=== PATIENT | male | born 1955 | race Caucasian/White ===

== ENCOUNTER 2016-04-03 00:02 | Emergency (ER) | payer OTHER ==
[~2016-04-03] VITALS: Ht 175.3 cm; Wt 154.0 kg
[~2016-04-03 00:02] MED LIST: AMLO5TAB96 PO; APIX2.5T PO; ECOT81TA2 PO; EZET10 PO; GLIM4TAB PO; GLUCTAB PO; HYDR50TA5 PO; LORTA5 PO; LOSA100T PO; METO100T PO; NITR0.4S SL; RANI150 PO; REST15CA PO; TIZA4 PO
[2016-04-03 00:10] VITALS: BP 151/74; PULSE 62; RESP 18; TEMP 98.1; O2SAT 97
[2016-04-03] MEDS ORDERED: VITA1000 PO (00:40)
[2016-04-03] MEDS ORDERED: TIZA4CAP3 PO (00:40)
[2016-04-03] MEDS ORDERED: ZOLP10TA3 PO (00:40)
[2016-04-03] MEDS ORDERED: ATOR10TA15 PO (00:42)
[2016-04-03] MEDS ORDERED: LOSA100T PO (00:42)
[2016-04-03] MEDS ORDERED: HYDR25TA5 PO (00:42)
[2016-04-03] MEDS ORDERED: GLIM4TAB PO (00:42)
[2016-04-03] MEDS ORDERED: HYDR-3533 PO (00:46)
[2016-04-03] MEDS ORDERED: ASPI-119 (00:49)
[2016-04-03] MEDS ORDERED: APIX5TAB PO (00:49)
[2016-04-03] MEDS ORDERED: METO100T PO (00:49)
[2016-04-03] MEDS ORDERED: ZETI10TA5 PO (00:49)
[2016-04-03] MEDS ORDERED: METF1000 PO (00:49)
[2016-04-03] MEDS ORDERED: AMLO5TAB2 PO (00:49)
[2016-04-03] MEDS ORDERED: BUPR150CR PO (00:50)
[2016-04-03] MEDS ORDERED: TETANUS/DIPHTHERIA TOXOID ADULT 0.5 ML VIAL IM ONE (01:30)
--- NOTE | 2016-04-03 01:36 | PD ---
HPI Chief Complaint: Laceration/Skin Injury Time Seen by Provider: 01:24 Travel History International Travel<30 days: No Contact w/Intl Traveler<30days: No Traveled to known affect area: No History of Present Illness HPI The patient is a 60-year-old [id number] male that lacerated the dorsum of his right thumb on a pistol at approximately 7 PM yesterday. His last tetanus shot was apparently over 5 years. He is on L Mikayla for atrial fibrillation and it would not stop bleeding. He can extend the IP joint of the right thumb without a problem. He has no numbness or weakness on the thumb. He denies any other injury. PFSH Past Medical History Autoimmune Disease: No Blood Disorders: No Cancer: No Cardiovascular Problems: Yes High Cholesterol: Yes Chest Pain: Yes Diabetes: Yes Patient Takes Glucophage: Yes (0904/02/16) Diminished Hearing: No Gastrointestinal Disorders: Yes (IBS) Genitourinary: No Hypertension: Yes Immune Disorder: No Musculoskeletal: Yes Neurologic: No Psychiatric: No Reproductive: No Tetanus Vaccination: < 5 Years PNEUMOCCOCAL Vaccine (Year): 1 Past Surgical History Abdominal Surgery: Yes (lap band) Appendectomy: Yes (AGE 9) Cardiac Surgery: Yes (STENTS) Coronary Stent: Yes (rca) Ear Surgery: No Endocrine Surgery: No Eye Surgery: No Gynecologic Surgery: No Oral Surgery: No Thoracic Surgery: No Tonsillectomy: Yes (CHILDHOOD) Other Surgery: Yes (L4-L5 LUMBAR LAMINECTOMY 1997) Social History Alcohol Use: Yes (OCCAS) Tobacco Use: No Substance Use: No Allergies-Medications (Allergen,Severity, Reaction): Coded Allergies: JORGITO Inhibitors (Verified Allergy, Severe, Cough, 04/03/16) Aldactone (Verified Allergy, Severe, GYNECOMASTIA, 04/03/16) Bee Sting (Verified Allergy, Severe, 04/03/16) Warfarin (Verified Allergy, Severe, Rash, 04/03/16) Reported Meds & Prescriptions Reported Meds & Active Scripts Active Reported Wellbutrin SR 12 HR (Bupropion HCl) 150 Mg Tab 150 Mg PO Q12HR Amlodipine (Amlodipine Besylate) 5 Mg Tab 5 Mg PO BID Metoprolol Tartrate 100 Mg Tab 100 Mg PO BID Hussein Low Dose (Aspirin) 81 Mg Tabdr Eliquis (Apixaban) 5 Mg Tab 5 Mg PO BID Metformin (Metformin HCl) 1,000 Mg Tab 1,000 Mg PO BIDPC With meals Zetia (Ezetimibe) 10 Mg Tab 10 Mg PO DAILY Lortab (Hydrocodone-Acetaminophen) 5-325 Mg Tab 1 Tab PO Q12HR PRN Hydrochlorothiazide 25 Mg Tab 25 Mg PO DAILY Losartan (Losartan Potassium) 100 Mg Tab 100 Mg PO DAILY Atorvastatin (Atorvastatin Calcium) 10 Mg Tab 10 Mg PO HS Glimepiride 4 Mg Tab 4 Mg PO DAILY Take with breakfast or first main meal Zolpidem (Zolpidem Tartrate) 10 Mg Tab 10 Mg PO HS PRN Tizanidine (Tizanidine HCl) 4 Mg Cap 8 Mg PO HS PRN Vitamin D-1000 (Cholecalciferol) 1,000 Unit Tab 1,000 Units PO DAILY Review of Systems Except as stated in HPI: all other systems reviewed are Neg Physical Exam Narrative GENERAL: Well-nourished, well-developed patient in minimal apparent distress with his laceration of his right thumb. His vital signs show blood pressure 151 /74 but are otherwise normal. SKIN: Warm and dry. There is a 1-1/2 cm laceration over the dorsum of the right thumb which is continually bleeding. No arterial bleeding is noted. HEAD: Normocephalic. EYES: No scleral icterus. No injection or drainage. NECK: Supple, trachea midline. No JVD or lymphadenopathy. CARDIOVASCULAR: Regular rate and rhythm without murmurs, gallops, or rubs. RESPIRATORY: Breath sounds equal bilaterally. No accessory muscle use. GASTROINTESTINAL: Abdomen soft, non-tender, nondistended. MUSCULOSKELETAL: No cyanosis, or edema. Good capillary refill and pinprick is present distally on the right thumb. He has good dorsiflexion of the right thumb at the IP joint.. BACK: Nontender without obvious deformity. No CVA tenderness. Data Data Last Documented VS Vital Signs Date Time Temp Pulse Resp B/P Pulse Ox O2 Delivery O2 Flow Rate FiO2 04/03/16 00:30 62 18 04/03/16 00:10 98.1 151/74 97 Orders Wound Care (04/03/16 01:24) Tetanus/Diphtheria Tox Adult (Tetanus/Di (04/03/16 01:30) MDM Medical Decision Making Medical Screen Exam Complete: Yes Emergency Medical Condition: Yes Medical Record Reviewed: Yes Differential Diagnosis Coagulopathy, laceration right thumb, laceration tendon, laceration nerve Narrative Course The patient has a laceration of the right thumb with a coagulopathy from Eliquis. There are no tendons or nerves involved in the wound but he does continually bleed. For this reason horizontal mattress sutures were put in for good compression. Procedures Procedure Narrative The thumb was prepped with Betadine. Under sterile technique, the laceration was infiltrated with lidocaine with epinephrine. The wound was explored and no tendons or nerves were noted in the laceration. The wound was copiously irrigated with saline. 2 horizontal mattress sutures were put in in this created good eversion of the skin and good compression of the small vessels. The patient tolerated the procedure well. Diagnosis Primary Impression: Laceration of thumb, right Additional Impression: Coagulopathy Additional Instructions: As we discussed, keep the wound clean and dry and keep a line of antibiotic ointment over the wound. If this wound gets infected, return immediately to emergency department. Remove the stitches in 10 days. The laceration will not be a full-strength for a month so do not flex the thumb fully as the laceration could open up. Med/Other Pt SpecificInfo: No Change to Meds Disposition: 01 DISCHARGE HOME Condition: Stable Miguel Tripp MD Apr 03, 2016 01:36
== END 2016-04-03 01:58 | disposition home or self-care (01) ==
LOC: PHED 00:02
DX: S61.011A Laceration without foreign body of right thumb without damage to nail, initial encounter (principal); D68.9 Coagulation defect, unspecified; I48.91 Unspecified atrial fibrillation; E78.00 Pure hypercholesterolemia, unspecified; E11.9 Type 2 diabetes mellitus without complications; I10 Essential (primary) hypertension; Z23 Encounter for immunization; W22.8XXA Striking against or struck by other objects, initial encounter
CPT/HCPCS: 12001; 90471; 90714

== ENCOUNTER → 2016-09-01 | Outpatient (CLI) | payer OTHER ==
[~2016-09-01] MED LIST changes: +AMLO5TAB2 PO; -AMLO5TAB96 PO; -APIX2.5T PO; +APIX5TAB PO; +ASPI-119; +ATOR10TA15 PO; +BUPR150CR PO; -ECOT81TA2 PO; -EZET10 PO; -GLUCTAB PO; +HYDR-3533 PO; +HYDR25TA5 PO; -HYDR50TA5 PO; -LORTA5 PO; +METF1000 PO; -NITR0.4S SL; -RANI150 PO; -REST15CA PO; -TIZA4 PO; +TIZA4CAP3 PO; +VITA1000 PO; +ZETI10TA5 PO; +ZOLP10TA3 PO
[2016-09-01 16:06] LABS: AUTOMATED NEUTROPHIL # 6.3 TH/MM3 (1.8-7.7); BASOPHIL % 0.5 % (0.0-2.0); EOSINOPHIL # 0.4 TH/MM3 (0-0.4); EOSINOPHIL % 4.5 % (0.0-4.0); HEMATOCRIT 41.5 % (39.0-51.0); HEMO FLAGS DIFF FINAL; LYMPH % 20.5 % (9.0-44.0); LYMPHOCYTE # 1.9 TH/MM3 (1.0-4.8); MEAN CELL VOLUME 81.2 FL (80.0-100.0); MEAN CORPUSCULAR HEMOGLOBIN 26.9 PG (27.0-34.0); MEAN CORPUSCULAR HGB CONC 33.1 % (32.0-36.0); MONO % 6.7 % (0.0-8.0); NEUT % 67.8 % (16.0-70.0); PLATELET COUNT 364 TH/MM3 (150-450); RED BLOOD COUNT 5.12 MIL/MM3 (4.50-5.90); RED CELL DISTRIBUTION WIDTH 14.4 % (11.6-17.2); WHITE BLOOD COUNT 9.3 TH/MM3 (4.0-11.0)
[2016-09-01 16:26] LABS: MICRO ALBUMIN RANDOM URINE RAW 27.7 MG/L (0.0-30.0)
[2016-09-01 16:32] LABS: ANION GAP 8 MEQ/L (5-15); AST (GOT) 22 U/L (15-37); BICARBONATE 29.3 MEQ/L (21.0-32.0); BLOOD UREA NITROGEN 11 MG/DL (7-18); CHLORIDE 101 MEQ/L (98-107); GLOMERULAR FILTRATION RATE 72 ML/MIN (>89); POTASSIUM 3.8 MEQ/L (3.5-5.1); SODIUM (NA) 138 MEQ/L (136-145)
[2016-09-01 16:46] LABS: ALKALINE PHOSPHATASE 59 U/L (45-117); ALT (GPT) 35 U/L (12-78); GLUCOSE,FASTING 123 MG/DL (74-99); HDL CHOLESTEROL 51.2 MG/DL (40.0-60.0); INDIRECT BILIRUBIN 0.5 MG/DL (0.0-0.8); LDL CHOLESTEROL 72 MG/DL (0-99); TOTAL BILIRUBIN ADULT 0.6 MG/DL (0.2-1.0)
[2016-09-01 21:30] LABS: HEMOGLOBIN A1a 1.6 %; HEMOGLOBIN A1b 2.1 %; HEMOGLOBIN Ao 83.6 %; HEMOGLOBIN P3 3.9 %
== END ==
LOC: PLAB 12:37
PROVIDERS: ATTEND Family Medicine
DX: E78.5 Hyperlipidemia, unspecified (principal); E11.9 Type 2 diabetes mellitus without complications; E55.9 Vitamin D deficiency, unspecified
CPT/HCPCS: 80048; 80061; 80076; 82043; 82306; 83036; 84153; 84443; 85025

== ENCOUNTER 2016-11-05 17:14 | Emergency (ER) | payer OTHER ==
[~2016-11-05] VITALS: Ht 175.3 cm; Wt 156.3 kg
[2016-11-05 17:17] VITALS: BP 169/70; PULSE 72; RESP 16
--- NOTE | 2016-11-05 17:35 | PD ---
HPI Chief Complaint: Skin Problem Time Seen by Provider: 17:31 Travel History International Travel<30 days: No Contact w/Intl Traveler<30days: No Traveled to known affect area: No History of Present Illness HPI This 60-year-old male is complaining of pain in his left leg. He says about 10 days ago he was laying with his dog and kicked the coffee table quite hard. Been having pain in the leg since then. He has been able to walk on it. It has become swollen and tender. There is a small area of skin breakdown. There has not been any fever or chills. He has a history of atrial fibrillation. He was on Coumadin at one time but had an allergy to it and is currently on Eliquis. He has had an ablation and apparently consideration is being given to taking him off his Eliquis. The pain was worse the last couple of days. PFSH Past Medical History Hx Anticoagulant Therapy: Yes (elaquis) Autoimmune Disease: No Blood Disorders: No Cancer: No Cardiovascular Problems: Yes High Cholesterol: Yes Chest Pain: Yes Diabetes: Yes Diminished Hearing: No Gastrointestinal Disorders: Yes (IBS) Genitourinary: No Hypertension: Yes Immune Disorder: No Musculoskeletal: Yes Neurologic: No Psychiatric: No Reproductive: No PNEUMOCCOCAL Vaccine (Year): 1 Past Surgical History Abdominal Surgery: Yes (lap band) Appendectomy: Yes (AGE 9) Cardiac Surgery: Yes (STENTS) Coronary Stent: Yes (rca) Ear Surgery: No Endocrine Surgery: No Eye Surgery: No Gynecologic Surgery: No Oral Surgery: No Thoracic Surgery: No Tonsillectomy: Yes (CHILDHOOD) Other Surgery: Yes (L4-L5 LUMBAR LAMINECTOMY 1997) Social History Alcohol Use: Yes (OCCAS) Tobacco Use: No Substance Use: No Allergies-Medications (Allergen,Severity, Reaction): Coded Allergies: bee venom protein (honey bee) (Unverified Allergy, Severe, 11/05/16) benazepril (Unverified Allergy, Severe, Cough, 11/05/16) captopril (Unverified Allergy, Severe, Cough, 11/05/16) enalaprilat (Unverified Allergy, Severe, Cough, 11/05/16) fosinopril (Unverified Allergy, Severe, Cough, 11/05/16) lisinopril (Unverified Allergy, Severe, Cough, 11/05/16) quinapril (Unverified Allergy, Severe, Cough, 11/05/16) spironolactone (Unverified Allergy, Severe, GYNECOMASTIA, 11/05/16) warfarin (Unverified Allergy, Severe, Rash, 11/05/16) Reported Meds & Prescriptions Reported Meds & Active Scripts Active Reported Amlodipine (Amlodipine Besylate) 5 Mg Tab 5 Mg PO BID Metoprolol Tartrate 100 Mg Tab 100 Mg PO BID Hussein Low Dose (Aspirin) 81 Mg Tabdr Eliquis (Apixaban) 5 Mg Tab 5 Mg PO BID Metformin (Metformin HCl) 1,000 Mg Tab 1,000 Mg PO BIDPC With meals Zetia (Ezetimibe) 10 Mg Tab 10 Mg PO DAILY Hydrochlorothiazide 25 Mg Tab 25 Mg PO DAILY Losartan (Losartan Potassium) 100 Mg Tab 100 Mg PO DAILY Atorvastatin (Atorvastatin Calcium) 10 Mg Tab 10 Mg PO HS Glimepiride 4 Mg Tab 4 Mg PO DAILY Take with breakfast or first main meal Vitamin D-1000 (Cholecalciferol) 1,000 Unit Tab 1,000 Units PO DAILY Review of Systems General / Constitutional: No: Fever, Chills Eyes: No: Diploplia, Blurred Vision HENT: No: Headaches Cardiovascular: No: Chest Pain or Discomfort Respiratory: No: Cough Gastrointestinal: No: Nausea, Vomiting Musculoskeletal: Positive: Pain, No: Myalgias Skin: No Rash Hematologic/Lymphatic: Positive: Easy Bruising Physical Exam Narrative GENERAL: Well-developed male SKIN: Focused skin assessment warm/dry. HEAD: Atraumatic. Normocephalic. EYES: Pupils equal and round. No scleral icterus. No injection or drainage. ENT: No nasal bleeding or discharge. Mucous membranes pink and moist. NECK: Trachea midline. No JVD. GASTROINTESTINAL: Abdomen soft, non-tender, nondistended. Hepatic and splenic margins not palpable. MUSCULOSKELETAL: Examination of the left leg shows some ecchymosis overlying the distal portion of the tibia area. there is localized tenderness. Pulses and sensation are intact. He is able to flex and extend his foot. There is a small area of skin breakdown that is leaking some clear fluid NEUROLOGICAL: Awake and alert. No obvious cranial nerve deficits. Motor grossly within normal limits. Normal speech. PSYCHIATRIC: Appropriate mood and affect; insight and judgment normal. Data Data Last Documented VS Vital Signs Date Time Temp Pulse Resp B/P (MAP) Pulse Ox O2 Delivery O2 Flow Rate FiO2 11/05/16 17:17 72 16 169/70 (103) Orders Orders Tibia/Fibula (Ap/Lat) (11/05/16 17:31) MDM Medical Decision Making Medical Screen Exam Complete: Yes Emergency Medical Condition: Yes Medical Record Reviewed: Yes Differential Diagnosis Differential includes contusion, ecchymosis secondary to Eliquis, fracture Narrative Course History of the left tib-fib is negative for fracture. Impression is contusion of the left santos. Xarelto. He is to keep the leg elevated avoid weightbearing Diagnosis Primary Impression: Contusion of left leg Qualified Codes: S80.12XA - Contusion of left lower leg, initial encounter Additional Instructions: Keep leg elevated Disposition: 01 DISCHARGE HOME Condition: Stable Goyo Nowak MD Nov 05, 2016 17:35
[2016-11-05 18:29] VITALS: BP 175/82; PULSE 70; RESP 16; O2SAT 96
--- NOTE | 2016-11-05 19:19 | RADRPT ---
EXAM DATE/TIME: 11/05/2016 17:39 [facility] COMPARISON: No previous studies available for comparison. INDICATIONS : Left distal tibia/fibula pain with bruising post hitting leg on corner of table. MEDICAL HISTORY : Torn ligaments to left ankle SURGICAL HISTORY : Left ankle ligament reconstruction ENCOUNTER: Initial ACUITY: 1 week PAIN SCORE: 7/10 LOCATION: Left distal tibia/fibula FINDINGS: An acute fracture is not seen. There does appear to be some linear density seen at the posterior proximal diaphyseal region of the proximal tibia likely related to hypertrophic change. T here is some minimal hypertrophic change at the anterior tibial tubercle. There is some chronic appe aring hypertrophic change inferior to the medial malleolus likely from prior injury. There does appe ar to be soft-tissue swelling at the ankle. There is hypertrophic change at the distal aspect of the talus and prominent calcaneal spurs at the Achilles and plantar aponeurosis attachments sites. CONCLUSION: 1. No definite acute bony abnormality is seen. There is chronic bony change as described above. 2. Soft-tissue swelling at the ankle. Elpidio Silva MD on November 05, 2016 at 19:08 Board Certified Radiologist. This report was verified electronically.
== END 2016-11-05 18:34 | disposition home or self-care (01) ==
LOC: PHED 17:14
DX: S80.12XA Contusion of left lower leg, initial encounter (principal); E11.9 Type 2 diabetes mellitus without complications; I10 Essential (primary) hypertension; E78.00 Pure hypercholesterolemia, unspecified; Z79.01 Long term (current) use of anticoagulants; Z79.84 Long term (current) use of oral hypoglycemic drugs; Z86.79 Personal history of other diseases of the circulatory system; Z87.19 Personal history of other diseases of the digestive system; Z87.39 Personal history of other diseases of the musculoskeletal system and connective tissue; W22.09XA Striking against other stationary object, initial encounter
CPT/HCPCS: 73590; 99283

== ENCOUNTER → 2017-05-05 | Outpatient (CLI) | payer OTHER ==
[~2017-05-05] MED LIST changes: -BUPR150CR PO; +EZET10 PO; -HYDR-3533 PO; -TIZA4CAP3 PO; -ZETI10TA5 PO; -ZOLP10TA3 PO
[2017-05-05 13:58] LABS: ALBUMIN 3.7 GM/DL (3.4-5.0); AST (GOT) 20 U/L (15-37); BICARBONATE 28.6 MEQ/L (21.0-32.0); BLOOD UREA NITROGEN 12 MG/DL (7-18); CHLORIDE 103 MEQ/L (98-107); CHOLESTEROL 125 MG/DL (120-200); CREATININE 0.93 MG/DL (0.60-1.30); GLOMERULAR FILTRATION RATE 82 ML/MIN (>89); GLUCOSE,FASTING 128 MG/DL (74-99); SODIUM (NA) 138 MEQ/L (136-145); TRIGLYCERIDES 142 MG/DL (42-150)
[2017-05-05 14:01] LABS: ALKALINE PHOSPHATASE 49 U/L (45-117); ALT (GPT) 28 U/L (12-78); DIRECT BILIRUBIN ADULT 0.1 MG/DL (0.0-0.2); INDIRECT BILIRUBIN 0.4 MG/DL (0.0-0.8); LDL CHOLESTEROL 49 MG/DL (0-99); TOTAL BILIRUBIN ADULT 0.5 MG/DL (0.2-1.0); TOTAL PROTEIN 7.6 GM/DL (6.4-8.2)
[2017-05-05 16:55] LABS: HEMOGLOBIN A1C 6.1 % (4.3-6.0)
== END ==
LOC: PLAB 11:00
PROVIDERS: ATTEND Family Medicine
DX: E78.5 Hyperlipidemia, unspecified (principal); E11.9 Type 2 diabetes mellitus without complications; E55.9 Vitamin D deficiency, unspecified
CPT/HCPCS: 36415; 80048; 80061; 80076; 82306; 83036

== ENCOUNTER 2017-06-08 01:40 | Emergency (ER) | payer OTHER ==
[~2017-06-08] VITALS: Ht 175.3 cm; Wt 156.6 kg
[2017-06-08 01:53] VITALS: BP 186/87; PULSE 60; RESP 16; TEMP 97.9; O2SAT 96
[2017-06-08] MEDS ORDERED: MAGN250T11 PO (02:17)
[2017-06-08] MEDS ORDERED: HYDR-3516 PO (02:17)
[2017-06-08] MEDS ORDERED: AMBI10TA PO (02:17)
[2017-06-08] MEDS ORDERED: GLUC500C36 PO (02:17)
[2017-06-08] MEDS ORDERED: ACETAMINOPHEN/HYDROcodone 325 MG/5 MG TAB PO ONE (02:45)
--- NOTE | 2017-06-08 02:51 | PD ---
HPI Chief Complaint: Injury Time Seen by Provider: 02:45 Travel History International Travel<30 days: No Contact w/Intl Traveler<30days: No Traveled to known affect area: No History of Present Illness HPI 61-year-old male presents to the emergency department for evaluation of injury to the right foot. Patient reports at 10 AM on Tuesday morning his dog which weighs approximately 40 pounds accidentally fell onto his left foot initially with localized swelling but this is progressively worsened over the past 36 hours. Patient denies other injury. Patient does take Eliquis. Patient is also prescribed aspirin. Patient took Tylenol without symptom relief. Symptoms have markedly worsened since approximately 6 PM this evening. Patient reports his pain 7/10 intensity. PFSH Past Medical History Narrative Medical Atrial fibrillation CAD diabetes morbid obesity lumbar disc disease laminectomy LAP-BAND; no tobacco use; nursing notes reviewed Hx Anticoagulant Therapy: Yes () Atrial Fibrillation: Yes Autoimmune Disease: No Blood Disorders: No Cancer: No Cardiac Catheterization: Yes (1997) Cardiovascular Problems: Yes High Cholesterol: Yes Chest Pain: Yes Coronary Artery Disease: Yes Diabetes: Yes Patient Takes Glucophage: Yes Diminished Hearing: No Gastrointestinal Disorders: Yes (IBS) Genitourinary: No Herniated Disk: Yes (L4-L5) Hypertension: Yes Immune Disorder: No Insomnia: Yes Musculoskeletal: Yes Neurologic: No Psychiatric: No Reproductive: No Triglycerides - High: Yes PNEUMOCCOCAL Vaccine (Year): 1 Past Surgical History Abdominal Surgery: Yes (lap band) Appendectomy: Yes (AGE 9) Cardiac Surgery: Yes (STENTS, CARDIAC ABLATION: 2013) Coronary Stent: Yes (RCA: 1997) Ear Surgery: No Endocrine Surgery: No Eye Surgery: No Gynecologic Surgery: No Oral Surgery: No Thoracic Surgery: No Tonsillectomy: Yes (CHILDHOOD) Other Surgery: Yes (L4-L5 LUMBAR LAMINECTOMY 1997) Social History Alcohol Use: Yes (OCCAS) Tobacco Use: No (QUIT 1987) Substance Use: No Allergies-Medications (Allergen,Severity, Reaction): Coded Allergies: bee venom protein (honey bee) (Unverified Allergy, Severe, 06/08/17) benazepril (Unverified Allergy, Severe, Cough, 06/08/17) captopril (Unverified Allergy, Severe, Cough, 06/08/17) enalaprilat (Unverified Allergy, Severe, Cough, 06/08/17) fosinopril (Unverified Allergy, Severe, Cough, 06/08/17) lisinopril (Unverified Allergy, Severe, Cough, 06/08/17) quinapril (Unverified Allergy, Severe, Cough, 06/08/17) spironolactone (Unverified Allergy, Severe, GYNECOMASTIA, 06/08/17) warfarin (Unverified Allergy, Severe, Rash, 06/08/17) Reported Meds & Prescriptions Reported Meds & Active Scripts Active Reported Hydrocodone-Acetamin 5-325 mg (Hydrocodone/Acetaminophen) 5 Mg-325 Mg Tablet 1 Tab PO Q12HR PRN Ambien (Zolpidem Tartrate) 10 Mg Tab 10 Mg PO HS PRN Glucosamine & Chondroitin Cap (Glucosa Dewitt 2Kcl/Chondroitin Dewitt) 500 Mg-400 Mg Capsule 1 Cap PO BID Magnesium Oxide 250 Mg Tab 250 Mg PO DAILY Amlodipine (Amlodipine Besylate) 5 Mg Tab 5 Mg PO BID Metoprolol Tartrate 100 Mg Tab 100 Mg PO BID Hussein Low Dose (Aspirin) 81 Mg Tabdr Eliquis (Apixaban) 5 Mg Tab 5 Mg PO BID Metformin (Metformin HCl) 1,000 Mg Tab 1,000 Mg PO BIDPC With meals Zetia (Ezetimibe) 10 Mg Tab 10 Mg PO DAILY Hydrochlorothiazide 25 Mg Tab 25 Mg PO DAILY Losartan (Losartan Potassium) 100 Mg Tab 100 Mg PO DAILY Atorvastatin (Atorvastatin Calcium) 10 Mg Tab 10 Mg PO DAILY Glimepiride 4 Mg Tab 4 Mg PO DAILY Take with breakfast or first main meal Vitamin D-1000 (Cholecalciferol) 1,000 Unit Tab 1,000 Units PO BID Review of Systems Except as stated in HPI: all other systems reviewed are Neg Physical Exam Narrative GENERAL: Well-developed and nourished male no acute distress or respiratory distress SKIN: Warm and dry. MUSCULOSKELETAL: No cyanosis, right foot ecchymosis and edema; distal foot is neurovascular tendon intact with capillary refill brisk and less than 2 seconds ; dorsalis pedis pulse 2+ to palpation. BACK: Nontender without obvious deformity. No CVA tenderness. Data Data Last Documented VS Vital Signs Date Time Temp Pulse Resp B/P (MAP) Pulse Ox O2 Delivery O2 Flow Rate FiO2 06/08/17 01:53 97.9 60 16 186/87 (120) 96 Orders Orders Ice/Cold Pack (06/08/17 02:45) Acetamin-Hydrocod 325-5 Mg ([place] 5-325 (06/08/17 02:45) Foot, Complete ([id number]) (06/08/17 ) Ed Discharge Order (06/08/17 03:40) MDM Medical Decision Making Medical Screen Exam Complete: Yes Emergency Medical Condition: Yes Medical Record Reviewed: Yes Interpretation(s) Last Impressions Foot X-Ray 06/08/17 0000 Signed Impressions: Service Date/Time: Thursday, June 08, 2017 03:04 - CONCLUSION: No acute bony injury Elpidio Torres MD Vital Signs Date Time Temp Pulse Resp B/P (MAP) Pulse Ox O2 Delivery O2 Flow Rate FiO2 06/08/17 01:53 97.9 60 16 186/87 (120) 96 Differential Diagnosis Contusion, fracture, hematoma; also to consider compartment syndrome Narrative Course Imaging study ordered of the right foot along with ice pack applied patient given one-time dose of Lortab 5/325 Imaging study no evidence for fracture subluxation or dislocation positive soft tissue swelling; patient offered padded Laureano, crutches or walker and declined Patient has prescription Lortab at home and no additional prescriptions provided Patient is encouraged to follow-up with his primary care provider and with orthopedist as needed or to return the emergency department for any change in condition Diagnosis Primary Impression: Crush injury of right foot Qualified Codes: S97.81XA - Crushing injury of right foot, initial encounter Referrals: Orthopedist call for appointment Primary Care Physician 2 days Patient Instructions: General Instructions Additional Instructions: Elevate right lower extremity/right foot Avoid weightbearing to the right foot Take acetaminophen as tolerated for pain relief Follow-up with your primary care provider call office in a.m. to schedule follow -up appointment Follow-up with orthopedist as needed Return to the emergency department for increasing pain or any concerns Med/Other Pt SpecificInfo: No Change to Meds Disposition: 01 DISCHARGE HOME Condition: Stable Mary Pino MD Jun 08, 2017 02:51
--- NOTE | 2017-06-08 03:25 | RADRPT ---
EXAM DATE/TIME: 06/08/2017 03:04 [facility] COMPARISON: No previous studies available for comparison. INDICATIONS : Right foot pain after fall. MEDICAL HISTORY : None. SURGICAL HISTORY : None. ENCOUNTER: Initial ACUITY: 2 days PAIN SCORE: 7/10 LOCATION: Right foot, anterior surface. FINDINGS: There is moderate arthritic change most significantly at the first MTP joint. A small plantar heel sp ur is identified. There is mild degenerative change in the ankle joint and ossification at the Achill es insertion. There is moderate soft tissue swelling most significantly involving the dorsal midfoot. No evidence of underlying fracture or dislocation. CONCLUSION: No acute bony injury Elpidio Torres MD on June 08, 2017 at 3:19 Board Certified Radiologist. This report was verified electronically.
[2017-06-08 03:52] VITALS: BP 172/80
== END 2017-06-08 03:53 | disposition home or self-care (01) ==
LOC: PHED 01:40
DX: S97.81XA Crushing injury of right foot, initial encounter (principal); I48.91 Unspecified atrial fibrillation; I25.10 Atherosclerotic heart disease of native coronary artery without angina pectoris; E11.9 Type 2 diabetes mellitus without complications; E66.01 Morbid (severe) obesity due to excess calories; E78.00 Pure hypercholesterolemia, unspecified; I10 Essential (primary) hypertension; W22.8XXA Striking against or struck by other objects, initial encounter; Z87.19 Personal history of other diseases of the digestive system
CPT/HCPCS: 73630; 99283